=== PATIENT | male | born 1975 | race African-American/Black ===

== ENCOUNTER 2018-04-16 20:24 | Emergency (ER) | payer SELFPAY ==
[~2018-04-16 20:24] MED LIST: IBUP800T23 PO
[2018-04-16 20:49] VITALS: BP 127/76; PULSE 79; RESP 18; TEMP 98.3; O2SAT 98
--- NOTE | 2018-04-16 22:59 | PD ---
HPI Chief Complaint: Injury Time Seen by Provider: 22:43 Travel History International Travel<30 days: No Contact w/Intl Traveler<30days: No Traveled to known affect area: No History of Present Illness HPI Patient is a 43-year-old male who is right-hand dominant, presents to the emergency room for evaluation of right-sided shoulder pain. Reports that he began to have pain 1 week ago and it has been persistent. Patient reports that he has not suffered any injuries to his shoulder, reports that pain radiates from his shoulder down to his fingers. Reports pain worse with range of motion to shoulder. PFSH Past Medical History Medical History: Denies Significant Hx Diminished Hearing: No GERD: Yes Past Surgical History Other Surgery: Yes (GANGLION CYST REMOVED FROM L WRIST) Social History Alcohol Use: Yes (occ beer) Tobacco Use: Yes (1/2 PPD) Substance Use: Yes ([place] 1-2x/wk) Allergies-Medications (Allergen,Severity, Reaction): Coded Allergies: No Known Allergies (Verified Adverse Reaction, Unknown, 04/16/18) Reported Meds & Prescriptions Reported Meds & Active Scripts Active Tylenol-Codeine #3 (Acetaminophen-Codeine) 300-30 mg Tab 1 Tab PO Q6H PRN Ibuprofen 600 Mg Tab 600 Mg PO Q6H PRN Medrol Dosepak (Methylprednisolone) 4 Mg Dspk 4 Mg PO DIRECTED Per Pharmacist direction Ibuprofen 800 Mg Tab 800 Mg PO Q6H PRN Review of Systems General / Constitutional: No: Fever Eyes: No: Visual changes HENT: No: Headaches Cardiovascular: No: Chest Pain or Discomfort Respiratory: No: Shortness of Breath Gastrointestinal: No: Abdominal Pain Genitourinary: No: Dysuria Musculoskeletal: Positive: Limited ROM (right shoulder), Pain (right shoulder) Skin: No Rash Neurologic: No: Weakness Psychiatric: No: Depression Endocrine: No: Polydipsia Hematologic/Lymphatic: No: Easy Bruising Physical Exam Narrative GENERAL: Well-nourished, well-developed patient. SKIN: Focused skin assessment warm/dry. HEAD: Normocephalic. EYES: No scleral icterus. No injection or drainage. NECK: Supple, trachea midline. No JVD or lymphadenopathy. CARDIOVASCULAR: Regular rate and rhythm without murmurs, gallops, or rubs. RESPIRATORY: Breath sounds equal bilaterally. No accessory muscle use. GASTROINTESTINAL: Abdomen soft, non-tender, nondistended. MUSCULOSKELETAL: No cyanosis, or edema. patient with pain with ROM to right shoulder, ROM to shoulder does exacerbate patient's symptoms, there are no obvious fx, pulses intact, neurovascularly intact BACK: Nontender without obvious deformity. No CVA tenderness. Data Data Last Documented VS Vital Signs Date Time Temp Pulse Resp B/P (MAP) Pulse Ox O2 Delivery O2 Flow Rate FiO2 04/16/18 20:49 98.3 79 18 127/76 (93) 98 Orders Orders Shoulder, Complete (>2vws) (04/16/18 ) Ketorolac Inj (Toradol Inj) (04/16/18 23:00) Dexamethasone Inj (Decadron Inj) (04/16/18 23:00) MDM Medical Decision Making Medical Screen Exam Complete: Yes Emergency Medical Condition: Yes Medical Record Reviewed: Yes Interpretation(s) Vital Signs Date Time Temp Pulse Resp B/P (MAP) Pulse Ox O2 Delivery O2 Flow Rate FiO2 04/16/18 20:49 98.3 79 18 127/76 (93) 98 Differential Diagnosis Tendinitis, bursitis, arthritis, fracture Narrative Course Last Impressions Shoulder X-Ray 04/16/18 0000 Signed Impressions: CONCLUSION: Unremarkable right shoulder xray of shoulder unremarkable - patient with most likely tendinitis of right shoulder, will start on nsaids and will have him follow up with an orthopedic surgeon. he will return to ER as needed Diagnosis Primary Impression: Tendinitis Patient Instructions: General Instructions Additional Instructions: Please follow up with orthopedic surgeon Return to ER as needed Med/Other Pt SpecificInfo: Prescription(s) given Scripts Acetaminophen-Codeine (Tylenol-Codeine #3) 300-30 mg Tab 1 TAB PO Q6H Y for PAIN, #12 TAB 0 Refills Prov: Sakina Hazel DO 04/16/18 Ibuprofen (Ibuprofen) 600 Mg Tab 600 MG PO Q6H Y for Pain/Inflammation, #40 TAB 0 Refills Prov: Sakina Hazel DO 04/16/18 Methylprednisolone Dosepak (Medrol Dosepak) 4 Mg Dspk 4 MG PO DIRECTED, #1 DSPK 0 Refills Per Pharmacist direction Prov: Sakina Hazel DO 04/16/18 Disposition: 01 DISCHARGE HOME Condition: Stable Sakina Hazel DO Apr 16, 2018 22:59
[2018-04-16] MEDS ORDERED: DEXAMETHASONE SOD PHOS 20 MG/5 ML VIAL IM ONE (23:00)
[2018-04-16] MEDS ORDERED: KETOROLAC TROMETHAMINE 60 MG/2 ML (IM) VIAL IM ONE (23:00)
--- NOTE | 2018-04-16 23:24 | RADRPT ---
EXAM DATE: 04/16/2018 11:14 PM EDT AGE/SEX: 43 years / Male INDICATIONS: Shoulder joint pain that travels down the arm. CLINICAL DATA: This is the patient's initial encounter. Patient reports that signs and symptoms have been present for 2 weeks and indicates a pain score of 7/10. MEDICAL/SURGICAL HISTORY: None. . Left wrist. COMPARISON: No prior exams available for comparison. FINDINGS: Views of the right shoulder demonstrates no acute fracture or dislocation. AC joint intact. Soft tiss ues are normal CONCLUSION: Unremarkable right shoulder Electronically signed by: Julio Simon MD 04/16/2018 11:23 PM EDT
[2018-04-16] MEDS ORDERED: TYLETAB34 PO (23:44)
[2018-04-16] MEDS ORDERED: IBUP-232 PO (23:44)
[2018-04-16] MEDS ORDERED: MEDR4PAK PO (23:44)
== END 2018-04-17 00:17 | disposition home or self-care (01) ==
LOC: NEPD 20:24
DX: M77.9 Enthesopathy, unspecified (principal); F12.90 Cannabis use, unspecified, uncomplicated; F17.200 Nicotine dependence, unspecified, uncomplicated; M25.511 Pain in right shoulder
CPT/HCPCS: 73030; 96372; 99283; J1100; J1885